=== PATIENT | female | born 1950 | race Caucasian/White ===

== ENCOUNTER → 2024-01-20 | Outpatient (CLI) | payer MEDICARE ==
[~2024-01-20] MED LIST: ALLEGRA 180MG180 MG PO; AUVI-Q0.3 IM; CALCIUM + D 6001 TA1; NEXIUM 40MG40 MG PO; NORVASC2.5 MG PO; VITAMIN D32000 I1 PO; ZYLOPRIM 100MG100 MG
== END ==
LOC: COL.CARD 12-12 15:00
DX: R06.02 Shortness of breath (principal)